=== PATIENT | female | born 1955 | race African-American/Black ===

== ENCOUNTER 2017-08-10 23:18 | Inpatient (IN) | payer OTHER ==
[~2017-08-10] VITALS: Ht 162.6 cm; Wt 65.2 kg
[~2017-08-10 23:18] MED LIST: ACTOS15 MG PO; ASPIR-LOW81 MG PO; CIPRO250 MG PO; FLONASE16 G1 BOTH NARES; GABAPENTIN300 MG PO; GLIPIZIDE5 M1 PO; GLUCOPHAGE500 MG PO; IBUPROFEN400 MG PO; LIDOCAINE700 MG TD; LOPRESSOR25 MG PO; LYRICA100 MG PO; LYRICA150 MG PO; MORPHINE SULFAT15 M1 PO; MS CONTIN,ORAMO30 MG PO; NAPROSYN375 MG PO; NEURONTIN600 MG PO; NICOTINE PATCH1 EAC1 TD; OXYCODONE-APAP1 EACH PO; PERCOCET 5/31 TABLET PO; PRINIVIL10 MG PO; PROCARDIA XL,AD30 MG PO; PROCARDIA XL30 MG PO; TYLENOL WITH C1 EACH PO; ULTRAM50 MG PO; VITAMIN D250000 UNIT PO; ZYRTEC10 M3 PO
[2017-08-11 00:03] LABS: HEMATOCRIT 45.6 % (36.0-46.0); HEMOGLOBIN 15.7 G/DL (11.9-15.5); MCH 32.5 PG (29.0-34.0); MCHC 34.4 G/DL (30.0-36.0); MCV 94.4 FL (83-99); PLATELET COUNT 247 K/uL (156-360); RBC DIS.WIDTH-CV 13.5 % (11.8-14.6); RED BLOOD COUNT 4.83 M/uL (3.80-5.20); WHITE BLOOD COUNT 7.2 K/uL (4.1-10.2)
[2017-08-11 00:10] LABS: ALBUMIN 3.7 g/dL (3.2-4.8)
[2017-08-11 00:11] LABS: CHLORIDE 104 mEq/L (99-109); POTASSIUM 3.4 mEq/L (3.7-5.4); SODIUM 138 mEq/L (136-147)
[2017-08-11 00:13] LABS: GLUCOSE 116 mg/dL (70-99); TOTAL PROTEIN 6.8 g/dL (6.4-8.3)
[2017-08-11 00:15] LABS: TOTAL BILIRUBIN 0.8 mg/dL (0.0-1.0)
[2017-08-11 00:16] LABS: ALKALINE PHOSPHATASE 58 IU/L (3-129)
[2017-08-11 00:17] LABS: CREATININE 1.2 mg/dL (0.6-1.3); GFR ESTIMATE (CALCULATED) 58 mL/min/
[2017-08-11 00:18] LABS: AST (GOT) 18 IU/L (2-34); UREA NITROGEN (BUN) 19 mg/dL (9-23)
[2017-08-11 00:19] LABS: ALT (GPT) 16 IU/L (3-49)
[2017-08-11 00:20] LABS: LIPASE 35 U/L (1.0-51.0)
[2017-08-11 00:22] LABS: TROP-I INTERPRETATION NEGATIVE; TROPONIN-I < 0.01 ng/mL (0.0-0.30)
[2017-08-11 04:39] LABS: APPEARANCE CLEAR ((CLEAR)); BILIRUBIN NEGATIVE; BLOOD SMALL; COLOR YELLOW ((YELLOW)); GLUCOSE (STRIP) NEGATIVE; KETONES NEGATIVE; LEUKOCYTES NEGATIVE; NITRITE NEGATIVE; PROTEIN (STRIP) NEGATIVE; SPECIFIC GRAVITY 1.033 (1.000-1.030); UROBILINOGEN 0.2 MG/DL (0.2-1.0)
[2017-08-11 04:52] LABS: BACTERIA RARE /HPF; EPITHELIAL CELLS RARE /HPF; MUCUS TRACE /LPF; RED BLOOD CELLS 0-5 /HPF (0-5); UCUL ADDED? NO; WHITE BLOOD CELLS 0-5 /HPF (0-5)
[2017-08-11] MEDS ORDERED: LISINOPRIL-HCT1 EAC3 PO (11:10)
[2017-08-11] MEDS ORDERED: METFORMIN HCL500 MG PO (11:10)
[2017-08-11] MEDS ORDERED: OXYCODONE-APAP1 EACH PO (11:10)
[2017-08-11] MEDS ORDERED: ASPIR-LOW81 MG PO (11:10)
[2017-08-11] MEDS ORDERED: HYDROXYZINE HCL25 MG PO (11:11)
[2017-08-11] MEDS ORDERED: VITAMIN D2000 UNI1 PO (11:11)
[2017-08-11] MEDS ORDERED: VENTOLIN HFA18 GM IH (11:11)
[2017-08-11 11:28] LABS: HEMATOCRIT 42.8 % (36.0-46.0); HEMOGLOBIN 14.4 G/DL (11.9-15.5); MCHC 33.6 G/DL (30.0-36.0); MCV 95.1 FL (83-99); PLATELET COUNT 216 K/uL (156-360); RBC DIS.WIDTH-CV 13.7 % (11.8-14.6); RBC DIS.WIDTH-SD 48.7 % (39-53); WHITE BLOOD COUNT 5.6 K/uL (4.1-10.2)
[2017-08-11 11:37] LABS: CHLORIDE 105 mEq/L (99-109); POTASSIUM 3.8 mEq/L (3.7-5.4); SODIUM 138 mEq/L (136-147)
[2017-08-11 11:39] LABS: GLUCOSE 98 mg/dL (70-99)
[2017-08-11 11:43] LABS: CREATININE 0.6 mg/dL (0.6-1.3); GFR ESTIMATE (CALCULATED) > 59 mL/min/
[2017-08-11 11:44] LABS: UREA NITROGEN (BUN) 12 mg/dL (9-23)
[2017-08-11 21:37] VITALS: BP 139/90
[2017-08-11 23:54] VITALS: BP 164/79
[2017-08-12 03:53] VITALS: BP 170/79
[2017-08-12 06:31] LABS: HEMATOCRIT 44.4 % (36.0-46.0); HEMOGLOBIN 14.7 G/DL (11.9-15.5); MCH 31.1 PG (29.0-34.0); MCHC 33.1 G/DL (30.0-36.0); MCV 94.1 FL (83-99); PLATELET COUNT 231 K/uL (156-360); RBC DIS.WIDTH-CV 13.4 % (11.8-14.6); RBC DIS.WIDTH-SD 47.3 % (39-53); RED BLOOD COUNT 4.72 M/uL (3.80-5.20); WHITE BLOOD COUNT 4.8 K/uL (4.1-10.2)
[2017-08-12 07:03] LABS: CHLORIDE 107 MEQ/L (99-109); CREATININE 0.5 MG/DL (0.6-1.3); GFR ESTIMATE (CALCULATED) > 59 mL/min/; POTASSIUM 4.3 MEQ/L (3.7-5.4); SODIUM 142 MEQ/L (136-147); UREA NITROGEN (BUN) 9 mg/dL (9-23)
[2017-08-12 07:08] LABS: GLUCOSE 174 mg/dL (70-99)
[2017-08-12] MEDS ORDERED: CIPRO500 MG PO (12:07)
[2017-08-12] MEDS ORDERED: FAMOTIDINE20 MG PO (12:07)
[2017-08-12] MEDS ORDERED: METRONIDAZOLE500 MG PO (12:07)
[2017-08-12] MEDS ORDERED: PREDNISONE5 M1 PO (12:07)
[2017-08-12 13:08] LABS: TROP-I INTERPRETATION NEGATIVE; TROPONIN-I < 0.01 ng/mL (0.0-0.30)
== END 2017-08-12 14:12 | disposition home or self-care (01) | DRG 392 ==
LOC: EME 23:18 → 5EAST 08-11 05:32 → EDOF 08-11 05:32 → ENRESERV 08-11 05:33 → 5EAST 08-11 21:07
PROVIDERS: Hospitalist; Physician Assistant; Student in an Organized Health Care Education/Training Program
DX: K52.9 Noninfective gastroenteritis and colitis, unspecified (principal); E86.0 Dehydration; E87.6 Hypokalemia; R09.02 Hypoxemia; J44.0 Chronic obstructive pulmonary disease with (acute) lower respiratory infection; J20.9 Acute bronchitis, unspecified; I11.0 Hypertensive heart disease with heart failure; I50.9 Heart failure, unspecified; I95.9 Hypotension, unspecified; I44.0 Atrioventricular block, first degree; M79.7 Fibromyalgia; E11.9 Type 2 diabetes mellitus without complications; G89.29 Other chronic pain; E78.5 Hyperlipidemia, unspecified; F17.200 Nicotine dependence, unspecified, uncomplicated; Z79.82 Long term (current) use of aspirin; Z83.3 Family history of diabetes mellitus; Z87.442 Personal history of urinary calculi
CPT/HCPCS: 71046; 74177; 80048; 80053; 81003; 82948; 83605; 83690; 83880; 84484; 85027; 87040; 87502; 93005; 93306; 94640; 94640 76; 94760; 94799; 99202; 99281; 99285; J0360; J0744; J1644; J2270; J2405; J2920; J7030; S0030